=== PATIENT | male | born 1970 | race Caucasian/White ===

== ENCOUNTER 2019-11-20 14:51 | Emergency (ER) | payer OTHER ==
[~2019-11-20] VITALS: Ht 200.7 cm; Wt 104.5 kg
[2019-11-20 15:00] VITALS: Ht 200.7 cm; Wt 104.5 kg
[2019-11-20] MEDS ORDERED: ARMOUR THYROID30 MG PO (15:02)
[2019-11-20] MEDS ORDERED: VITAMIN D (15:02)
[2019-11-20] MEDS ORDERED: PROPECIA1 MG PO (15:03)
[2019-11-20] MEDS ORDERED: HYDROCODON-ACE1 EA10 PO (16:09)
[2019-11-20 16:33] VITALS: BP 127/90
== END 2019-11-20 16:33 | disposition home or self-care (01) ==
LOC: EDBD 14:51 → D.ER 14:51
DX: S43.101A Unspecified dislocation of right acromioclavicular joint, initial encounter (principal); X58.XXXA Exposure to other specified factors, initial encounter; M25.551 Pain in right hip